=== PATIENT | male | born 1975 | race Caucasian/White ===

== ENCOUNTER 2020-02-04 19:06 | Emergency (ER) | payer OTHER ==
[~2020-02-04] VITALS: Ht 182.9 cm; Wt 145.2 kg
[2020-02-04] MEDS ORDERED: ABILIFY10 MG PO (19:41)
[2020-02-04] MEDS ORDERED: LITHIUM CARBON300 M3 PO (19:42)
[2020-02-04] MEDS ORDERED: NEURONTIN 300M300 M2 PO (19:43)
[2020-02-04 20:55] LABS: ABSOLUTE NEUTROPHILS 6.2 thou/uL (1.4-8.2); BASOPHILS 1.1 % (0.0-2.0); EOSINOPHILS 1.5 % (0.0-3.0); HEMATOCRIT 36.9 % (42.0-52.0); HEMOGLOBIN 11.9 gm/dL (14.0-18.0); LYMPHOCYTES 24.7 % (24.0-44.0); MCH 27.1 pg (26.0-34.0); MCHC 32.3 g/dL (28.0-37.0); MCV 83.8 fL (80.0-100.0); MONOCYTES 9.3 % (1.0-8.0); PLATELET COUNT 304 thou/uL (150-400); POLYS 63.4 % (36.0-66.0); RDW 14.5 % (10.5-14.5); WBC 9.8 thou/uL (4.0-11.0)
[2020-02-04 20:59] LABS: ANION GAP 9 mmol/L (7-16); BUN 11 mg/dL (7-18); CALCIUM 8.5 mg/dL (8.5-10.1); CHLORIDE 108 mmol/L (98-107); CO2 27 mmol/L (21-32); CREATININE 0.9 mg/dL (0.7-1.3); GLUCOSE 89 mg/dL (74-106); POTASSIUM 3.7 mmol/L (3.5-5.1); SODIUM 144 mmol/L (136-145)
[2020-02-04 21:08] LABS: TROPONIN-I <0.06 ng/mL (<0.06)
[2020-02-04 22:20] VITALS: BP 134/74
--- NOTE | 2020-02-05 07:55 | EKG ---
[facility] [place] [address] ELECTROCARDIOGRAM REPORT Name: EVANS MAGANA Room #: DEP [facility]#: [id number] Admission: 02/04/20 Attend Phys: Discharge: 02/04/20 Date of : 73 Report #: [id number] THIS REPORT FOR: cc: AYE - No family physician/PCP FAM - No family physician/PCP Hubert Enirquez MD [facility] THIS REPORT FOR: //name// [facility] ED Test Date: 2020-02-04 Test Time: 20:18:19 Pat Name: EVANS MAGANA Department: Room: Gender: Director Financial Planning: [facility] : 1975 Requested By: Albert Almanzar Order Number: [id number] MD: Hubert Enriquez Measurements Intervals [place] Rate: 97 P: 44 CA: 162 QRS: -109 QRSD: 130 T: 73 QT: 392 QTc: 498 Interpretive Statements Sinus rhythm Left anterior hemiblock Poor R wave progression No previous ECG available for comparison Electronically Signed On 02-05-2020 7:55:22 [employer]M SOUND ENGINE[employer] by Hubert Enriquez [email or web address] <ELECTRONICALLY SIGNED> By: Hubert Enriquez MD, FACC 02/05/20 0755 17 17 Hubert Enriquez MD, FAC /EPI
== END 2020-02-04 22:20 | disposition home or self-care (01) ==
LOC: ER 19:06
PROVIDERS: Emergency Medicine
DX: R07.89 Other chest pain (principal); I25.10 Atherosclerotic heart disease of native coronary artery without angina pectoris; I10 Essential (primary) hypertension; Z79.899 Other long term (current) drug therapy; Z88.8 Allergy status to other drugs, medicaments and biological substances